=== PATIENT | female | born 1935 | race Caucasian/White ===

== ENCOUNTER 2021-11-22 09:19 | Outpatient (CLI) | payer MEDICARE ==
[2021-11-22 10:50] LABS: Hemoglobin 13.9 g/dL (12.0-15.5); Mean Corpuscular HGB CONC 32.7 g/dL (32.0-36.0); Mean Corpuscular Hemoglobin 29.8 pg (27.0-33.0); Mean Corpuscular Volume 91.2 fl (81.6-98.3); Mean Platelet Volume 10.3 fl (7.4-10.4); Platelet Count 281 10x3/uL (150-450); RBC Distribution Width 13.1 % (11.5-14.5); Red Blood Cell (RBC) Count 4.66 10x6/uL (3.90-5.03)
[2021-11-22 11:14] LABS: PTT 25.9 sec (22.0-33.0); Prothrombin Time 10.5 sec (9.5-12.1)
[2021-11-22 11:32] LABS: Anion Gap 15 mmol/L (10-20); BUN (Urea Nitrogen) 13 mg/dL (9.8-20.1); Calc. Creatinine Clearance 0 mL/min (70-130); Calcium 9.2 mg/dL (7.8-10.44); Carbon Dioxide 27 mmol/L (23-31); Chloride 101 mmol/L (98-107); Glucose 100 mg/dL (83-110); Sodium 139 mmol/L (136-145)
[2021-11-23 00:47] LABS: SARS-CoV-2 PCR by NAA Not Detected (NotDetected)
== END 2021-11-22 09:20 | disposition home or self-care (01) ==
LOC: LABBT 09:19
PROVIDERS: ATTEND Neurological Surgery
DX: Z01.818 Encounter for other preprocedural examination (principal); M43.16 Spondylolisthesis, lumbar region; M71.38 Other bursal cyst, other site; Z20.822 Contact with and (suspected) exposure to COVID-19
CPT/HCPCS: 80048; 85027; 85610; 85730; 93005; U0003; U0005; 93010

== ENCOUNTER 2021-11-25 05:20 | Inpatient (IN) | payer MEDICARE ==
[2021-11-22 13:03] VITALS: BMI 24.4
[2021-11-25] MEDS ORDERED: Bupivacaine PF 0.5% 30 ML VIAL ONE ×2 (06:09→11:36)
[2021-11-25] MEDS ORDERED: EPINEPHrine 1 MG/ML AMP ONE (06:09)
[2021-11-25] MEDS ORDERED: Thrombin 5000 UNITS/5 ML VIAL ONE (06:10)
[2021-11-25] MEDS ORDERED: Neomycin-Polymyxin 1 ML AMP ONE (06:10)
[2021-11-25] MEDS ORDERED: fentaNYL Citrate/PF 100 MCG/2 ML SYRINGE ONE (06:27)
[2021-11-25] MEDS ORDERED: Phenylephrine 10 MG/ML VIAL ONE ×2 (06:28→09:48)
[2021-11-25] MEDS ORDERED: ceFAZolin (BATCH) 2 GM/100 ML BAG ONE (06:39)
[2021-11-25] MEDS ORDERED: Promethazine HCl 25 MG/ML VIAL IM PRN ×2 (06:58→13:37)
[2021-11-25] MEDS ORDERED: HYDROmorphone 2 MG/ML VIAL SLOW IVP PRN (06:58)
[2021-11-25] MEDS ORDERED: Meperidine HCl/PF 25 MG/ML VIAL SLOW IVP PRN ×2 (06:58)
[2021-11-25] MEDS ORDERED: Ondansetron HCl/PF 4 MG/2 ML Vial IVP PRN (06:58)
[2021-11-25] MEDS ORDERED: Promethazine HCl 25 MG/ML VIAL IVPB PRN (06:58)
[2021-11-25] MEDS ORDERED: Calcium Chloride 1 GM/10 ML Abboject SYRINGE ONE (07:00)
[2021-11-25] MEDS ORDERED: Ondansetron PF 4 MG/2 ML Vial ONE (07:00)
[2021-11-25] MEDS ORDERED: Lidocaine 1% PF 5 ML VIAL ONE (07:00)
[2021-11-25] MEDS ORDERED: ePHEDrine 50 MG/ML VIAL ONE (07:00)
[2021-11-25] MEDS ORDERED: PROPOFOL 200 MG/20 ML VIAL ONE (07:00)
[2021-11-25] MEDS ORDERED: Glycopyrrolate 0.2 MG/ML 5 ML SYRINGE ONE (07:00)
[2021-11-25] MEDS ORDERED: PHENYLEPHRINE-NS 100 MCG/ML 10 ML SYRINGE ONE (07:00)
[2021-11-25] MEDS ORDERED: Rocuronium Bromide 10 MG/ML (10ML VIAL) ONE (07:00)
[2021-11-25] MEDS ORDERED: SUGAMMADEX SODIUM 200 MG/2 ML VIAL ONE (09:44)
[2021-11-25] MEDS ORDERED: HYDROmorphone 2 MG/ML VIAL ONE (09:44)
[2021-11-25] MEDS ORDERED: Bacitracin Zinc Ointment 30 gm TUBE ONE (13:26)
[2021-11-25] MEDS ORDERED: Milk Of Magnesia 30 ML UDCUP PO PRN (13:37)
[2021-11-25] MEDS ORDERED: Ondansetron PF 4 MG/2 ML Vial IVP PRN (13:37)
[2021-11-25] MEDS ORDERED: diphenhydrAMINE 50 MG/ML VIAL IVP PRN (13:37)
[2021-11-25] MEDS ORDERED: Morphine 2 MG/ML VIAL SLOW IVP PRN (13:37)
[2021-11-25] MEDS ORDERED: Prochlorperazine 10 MG/2 ML VIAL IM PRN (13:37)
[2021-11-25] MEDS ORDERED: Fentanyl 100 MCG/2 ML VIAL ONE ×2 (14:05→14:38)
[2021-11-25] MEDS ORDERED: Dextrose 50% Abboject 50 ML SYRINGE SLOW IVP PRN (15:55)
[2021-11-25] MEDS ORDERED: Dextrose 5% in Water 1,000 ML IV PRN (15:55)
[2021-11-25] MEDS ORDERED: Insulin Regular 300 UNITS/3 ML VIAL SC PRN (15:55)
[2021-11-25] MEDS: Sodium Chloride 0.9% 1,000 ML IV SCH (16:45)
[2021-11-25] MEDS: ceFAZolin (BATCH) 2 GM in Premix Bag 1 BAG IVPB SCH (16:45)
[2021-11-25] MEDS: HYDROcodone/Acetaminophen 7.5/325 mg Tablet PO PRN (16:45)
[2021-11-25] MEDS: Insulin Regular 300 UNITS/3 ML VIAL SC PRN (16:53)
[2021-11-25 17:38] LABS: #Lymphocytes 0.7 thou/uL (1.20-3.40); #Monocytes 0.9 thou/uL (0.11-0.59); #Neutrophils 14.7 thou/uL (1.40-6.50); %Eosinophils 0.2 % (0.0-10.0); %Lymphocytes 4.1 % (21.0-51.0); %Monocytes 5.3 % (0.0-10.0); %Neutrophils 90.3 % (42.0-75.0); Hemoglobin 12.8 g/dL (12.0-16.0); Mean Corpuscular HGB CONC 32.6 g/dL (32.0-36.0); Mean Platelet Volume 7.7 fL (7.4-10.4); Platelet Count 241 thou/uL (130-400); RBC Distribution Width 11.8 % (11.5-14.5); Red Blood Cell (RBC) Count 4.14 mill/uL (4.20-5.40); White Blood Cell (WBC) Count 16.3 thou/uL (4.8-10.8)
[2021-11-25 17:56] LABS: Anion Gap 13 mmol/L (10-20); BUN (Urea Nitrogen) 11 mg/dL (9.8-20.1); Calc. Creatinine Clearance 38 mL/min (70-130); Calcium 8.5 mg/dL (7.8-10.44); Carbon Dioxide 23 mmol/L (23-31); Chloride 102 mmol/L (98-107); Glucose 216 mg/dL (83-110); Potassium 4.2 mmol/L (3.5-5.1); Sodium 134 mmol/L (136-145)
[2021-11-25] MEDS: Cyclobenzaprine 10 MG TAB PO PRN ×2 (20:08→20:10)
[2021-11-25] MEDS: HYDROcodone/Acetaminophen 10/325 mg Tablet PO PRN (22:02)
[2021-11-26] MEDS ORDERED: hydrALAZINE 20 MG/ML VIAL SLOW IVP PRN (00:47)
[2021-11-26] MEDS: HYDROcodone/Acetaminophen 10/325 mg Tablet PO PRN ×4 (03:05→20:33)
[2021-11-26] MEDS: ceFAZolin (BATCH) 2 GM in Premix Bag 1 BAG IVPB SCH (03:06)
[2021-11-26 06:13] LABS: #Lymphocytes 1.5 thou/uL (1.20-3.40); #Monocytes 1.8 thou/uL (0.11-0.59); #Neutrophils 12.2 thou/uL (1.40-6.50); %Basophils 0.1 % (0.0-1.0); %Eosinophils 0.1 % (0.0-10.0); %Lymphocytes 9.5 % (21.0-51.0); %Monocytes 11.5 % (0.0-10.0); %Neutrophils 78.8 % (42.0-75.0); Hemoglobin 10.2 g/dL (12.0-16.0); Mean Corpuscular HGB CONC 33.6 g/dL (32.0-36.0); Mean Corpuscular Hemoglobin 31.8 pg (27.0-31.0); Mean Corpuscular Volume 94.5 fL (78.0-98.0); Mean Platelet Volume 8.3 fL (7.4-10.4); Platelet Count 215 thou/uL (130-400); RBC Distribution Width 11.6 % (11.5-14.5); Red Blood Cell (RBC) Count 3.22 mill/uL (4.20-5.40); White Blood Cell (WBC) Count 15.5 thou/uL (4.8-10.8)
[2021-11-26 06:54] LABS: Anion Gap 11 mmol/L (10-20); BUN (Urea Nitrogen) 11 mg/dL (9.8-20.1); Calc. Creatinine Clearance 52 mL/min (70-130); Calcium 8.4 mg/dL (7.8-10.44); Carbon Dioxide 25 mmol/L (23-31); Chloride 103 mmol/L (98-107); Glucose 132 mg/dL (83-110); Potassium 4.1 mmol/L (3.5-5.1); Sodium 135 mmol/L (136-145)
[2021-11-26] MEDS: Sodium Chloride 0.9% 1,000 ML IV SCH ×2 (07:09→15:38)
[2021-11-26] MEDS: traMADol HCl 50 MG TAB PO PRN (15:55)
[2021-11-26] MEDS ORDERED: Lisinopril/Hydrochlorothiazide 10 mg/12.5 mg Tablet PO SCH (16:15)
[2021-11-26] MEDS: Insulin Regular 300 UNITS/3 ML VIAL SC PRN (16:21)
[2021-11-26] MEDS ORDERED: metFORMIN 500 MG TAB PO SCH (16:30)
[2021-11-27] MEDS: HYDROcodone/Acetaminophen 10/325 mg Tablet PO PRN ×4 (02:14→22:59)
[2021-11-27] MEDS: Sodium Chloride 0.9% 1,000 ML IV SCH ×2 (05:45→18:05)
[2021-11-27 06:09] LABS: #Lymphocytes 2.2 thou/uL (1.20-3.40); #Monocytes 1.6 thou/uL (0.11-0.59); #Neutrophils 10.5 thou/uL (1.40-6.50); %Basophils 0.1 % (0.0-1.0); %Eosinophils 0.1 % (0.0-10.0); %Lymphocytes 15.6 % (21.0-51.0); %Monocytes 10.9 % (0.0-10.0); %Neutrophils 73.3 % (42.0-75.0); Hemoglobin 9.3 g/dL (12.0-16.0); Mean Corpuscular HGB CONC 34.5 g/dL (32.0-36.0); Mean Corpuscular Hemoglobin 32.9 pg (27.0-31.0); Mean Corpuscular Volume 95.4 fL (78.0-98.0); Mean Platelet Volume 8.1 fL (7.4-10.4); Platelet Count 202 thou/uL (130-400); RBC Distribution Width 12.5 % (11.5-14.5); Red Blood Cell (RBC) Count 2.82 mill/uL (4.20-5.40); White Blood Cell (WBC) Count 14.3 thou/uL (4.8-10.8)
[2021-11-27 06:35] LABS: Anion Gap 10 mmol/L (10-20); BUN (Urea Nitrogen) 10 mg/dL (9.8-20.1); Calc. Creatinine Clearance 57 mL/min (70-130); Calcium 8.1 mg/dL (7.8-10.44); Carbon Dioxide 27 mmol/L (23-31); Chloride 101 mmol/L (98-107); Glucose 118 mg/dL (83-110); Potassium 3.6 mmol/L (3.5-5.1); Sodium 134 mmol/L (136-145)
[2021-11-27] MEDS ORDERED: metFORMIN 500 MG TAB PO SCH (08:00)
[2021-11-27] MEDS: Lisinopril/Hydrochlorothiazide 10 mg/12.5 mg Tablet PO SCH (08:32)
[2021-11-27] MEDS: Cholecalciferol 1,000 UNITS (25 MCG) TAB PO SCH (08:32)
[2021-11-27] MEDS: Vit A,C & E/Lutein/Minerals Tablet PO SCH (08:32)
[2021-11-27] MEDS: metFORMIN 500 MG TAB PO SCH (08:33)
[2021-11-27] MEDS ORDERED: Aspirin 81 mg Enteric Coated Tablet PO SCH (09:00)
[2021-11-27] MEDS ORDERED: Lisinopril/Hydrochlorothiazide 10 mg/12.5 mg Tablet PO SCH (09:00)
[2021-11-27] MEDS ORDERED: TETRAHYDROZOLINE HCL EA EYE SCH (09:00)
[2021-11-27] MEDS ORDERED: ZINC SULF EA EYE SCH (09:00)
[2021-11-27] MEDS: Acetaminophen/Codeine 30-300mg Tablet PO PRN (11:37)
[2021-11-27] MEDS: Cyclobenzaprine 10 MG TAB PO PRN (20:13)
[2021-11-27] MEDS ORDERED: Heparin 5,000 UNITS/ML VIAL SC SCH (21:00)
[2021-11-28] MEDS: HYDROcodone/Acetaminophen 10/325 mg Tablet PO PRN ×2 (05:35→20:11)
[2021-11-28] MEDS: Cholecalciferol 1,000 UNITS (25 MCG) TAB PO SCH (09:01)
[2021-11-28] MEDS: Lisinopril/Hydrochlorothiazide 10 mg/12.5 mg Tablet PO SCH (09:01)
[2021-11-28] MEDS: metFORMIN 500 MG TAB PO SCH (09:01)
[2021-11-28] MEDS: Vit A,C & E/Lutein/Minerals Tablet PO SCH (09:01)
[2021-11-28] MEDS: HYDROcodone/Acetaminophen 7.5/325 mg Tablet PO PRN ×2 (10:02→16:04)
[2021-11-28] MEDS: Sodium Chloride 0.9% 1,000 ML IV SCH ×2 (13:29→21:45)
[2021-11-28] MEDS: Heparin 5,000 UNITS/ML VIAL SC SCH (20:12)
[2021-11-29] MEDS: HYDROcodone/Acetaminophen 10/325 mg Tablet PO PRN ×2 (02:37→23:40)
[2021-11-29] MEDS: Cyclobenzaprine 10 MG TAB PO PRN ×2 (05:45→20:30)
[2021-11-29] MEDS: Heparin 5,000 UNITS/ML VIAL SC SCH ×2 (09:28→20:30)
[2021-11-29] MEDS: metFORMIN 500 MG TAB PO SCH (09:29)
[2021-11-29] MEDS: Vit A,C & E/Lutein/Minerals Tablet PO SCH (09:29)
[2021-11-29] MEDS: Cholecalciferol 1,000 UNITS (25 MCG) TAB PO SCH (09:29)
[2021-11-29] MEDS: Lisinopril/Hydrochlorothiazide 10 mg/12.5 mg Tablet PO SCH (09:29)
[2021-11-29] MEDS: Insulin Regular 300 UNITS/3 ML VIAL SC PRN (12:15)
[2021-11-29] MEDS: Sodium Chloride 0.9% 1,000 ML IV SCH (12:17)
[2021-11-29 16:52] LABS: Bacteria/HPF None Seen HPF (None Seen); Bilirubin Negative (Negative); Blood, Urine Negative (Negative); Clarity Clear (Clear); Glucose, Urine (Dipstick) Normal (Negative); Ketone, Urine Negative (Negative); Leukocyte Negative Leu/uL (Negative); Nitrite Negative (Negative); Protein, Urine (Dipstick) Negative (Neg-Trace); RBC/HPF 0-3 HPF (0-3); Specific Gravity, Urine 1.006 (1.002-1.036); Squamous Epithelial None Seen HPF (0-3); Urobilinogen Normal mg/dL (Less than 2); WBC/HPF 0-3 HPF (0-3); pH, Urine 7.5 (5.0-9.0)
[2021-11-29 17:28] LABS: Creatinine, Urine 20.76 mg/dL (47-110)
[2021-11-29] MEDS: Acetaminophen/Codeine 30-300mg Tablet PO PRN (18:24)
[2021-11-30] MEDS: HYDROcodone/Acetaminophen 10/325 mg Tablet PO PRN (05:07)
[2021-11-30 07:02] LABS: Hemoglobin A1c 5.8 % (4.0-6.0)
[2021-11-30 07:21] LABS: Anion Gap 11 mmol/L (10-20); BUN (Urea Nitrogen) 9 mg/dL (9.8-20.1); Calc. Creatinine Clearance 57 mL/min (70-130); Calcium 8.4 mg/dL (7.8-10.44); Carbon Dioxide 27 mmol/L (23-31); Chloride 96 mmol/L (98-107); Glucose 121 mg/dL (83-110); Magnesium 2.1 mg/dL (1.6-2.6); Potassium 3.4 mmol/L (3.5-5.1); Sodium 131 mmol/L (136-145)
[2021-11-30] MEDS: Lisinopril 20 MG TAB PO SCH (09:00)
[2021-11-30] MEDS: Cholecalciferol 1,000 UNITS (25 MCG) TAB PO SCH (09:00)
[2021-11-30] MEDS: Vit A,C & E/Lutein/Minerals Tablet PO SCH (09:00)
[2021-11-30] MEDS: metFORMIN 500 MG TAB PO SCH (09:00)
[2021-11-30] MEDS ORDERED: Iopamidol 370 76% 50 ML VIAL FS ONE (09:37)
[2021-11-30] MEDS: Acetaminophen/Codeine 30-300mg Tablet PO PRN ×2 (13:00→17:36)
[2021-11-30] MEDS ORDERED: Magnesium Citrate 300 ML BOT PO SCH (13:30)
[2021-11-30] MEDS ORDERED: Sodium Chloride 0.9% 1,000 ML IV SCH (14:15)
[2021-11-30] MEDS ORDERED: Lidocaine 1% (PF) 30 ML VIAL ONE (14:23)
[2021-11-30] MEDS: Cyclobenzaprine 10 MG TAB PO PRN (17:55)
[2021-11-30] MEDS: HYDROcodone/Acetaminophen 7.5/325 mg Tablet PO PRN (20:38)
[2021-11-30] MEDS: Senokot S 8.6-50 MG TAB PO SCH (20:38)
[2021-11-30] MEDS: traMADol HCl 50 MG TAB PO PRN (21:49)
[2021-12-01] MEDS: Acetaminophen/Codeine 30-300mg Tablet PO PRN (00:11)
[2021-12-01] MEDS: Cyclobenzaprine 10 MG TAB PO PRN ×2 (00:11→20:38)
[2021-12-01] MEDS: HYDROcodone/Acetaminophen 7.5/325 mg Tablet PO PRN ×2 (04:58→20:37)
[2021-12-01 05:32] LABS: Hemoglobin 9.2 g/dL (12.0-16.0); Mean Corpuscular HGB CONC 32.8 g/dL (32.0-36.0); Mean Corpuscular Hemoglobin 30.9 pg (27.0-31.0); Mean Corpuscular Volume 94.2 fL (78.0-98.0); Mean Platelet Volume 6.9 fL (7.4-10.4); Platelet Count 339 thou/uL (130-400); RBC Distribution Width 11.7 % (11.5-14.5); Red Blood Cell (RBC) Count 2.96 mill/uL (4.20-5.40); White Blood Cell (WBC) Count 6.8 thou/uL (4.8-10.8)
[2021-12-01 05:54] LABS: Anion Gap 13 mmol/L (10-20); BUN (Urea Nitrogen) 8 mg/dL (9.8-20.1); Calc. Creatinine Clearance 58 mL/min (70-130); Calcium 8.5 mg/dL (7.8-10.44); Carbon Dioxide 25 mmol/L (23-31); Chloride 99 mmol/L (98-107); Glucose 119 mg/dL (83-110); Magnesium 1.9 mg/dL (1.6-2.6); Potassium 3.9 mmol/L (3.5-5.1); Sodium 133 mmol/L (136-145)
[2021-12-01] MEDS ORDERED: Magnesium 2 GM/50 ML(in water) 2 GM in Premix Bag 1 BAG IVPB SCH (07:30)
[2021-12-01] MEDS: Cholecalciferol 1,000 UNITS (25 MCG) TAB PO SCH (08:49)
[2021-12-01] MEDS: Polyethylene Glycol 3350 17 GM Packet PO SCH (08:49)
[2021-12-01] MEDS: Lisinopril 20 MG TAB PO SCH (08:49)
[2021-12-01] MEDS: Senokot S 8.6-50 MG TAB PO SCH ×2 (08:49→20:38)
[2021-12-01] MEDS: Vit A,C & E/Lutein/Minerals Tablet PO SCH (08:49)
[2021-12-01] MEDS: metFORMIN 500 MG TAB PO SCH (08:49)
[2021-12-01] MEDS ORDERED: Milk Of Magnesia 30 ML UDCUP PO SCH (13:30)
[2021-12-02] MEDS: Acetaminophen/Codeine 30-300mg Tablet PO PRN (03:16)
[2021-12-02 06:02] LABS: Iron Binding Capacity, Total 213 mcg/dL (265-497)
[2021-12-02 06:03] LABS: Iron 25 ug/dL (50-170)
[2021-12-02 06:05] LABS: Anion Gap 12 mmol/L (10-20); BUN (Urea Nitrogen) 9 mg/dL (9.8-20.1); Calc. Creatinine Clearance 57 mL/min (70-130); Calcium 8.5 mg/dL (7.8-10.44); Carbon Dioxide 25 mmol/L (23-31); Chloride 99 mmol/L (98-107); Glucose 120 mg/dL (83-110); Iron 24 ug/dL (50-170); Iron Binding Capacity, Total 213 mcg/dL (265-497); Magnesium 2.4 mg/dL (1.6-2.6); Sodium 132 mmol/L (136-145)
[2021-12-02] MEDS: Polyethylene Glycol 3350 17 GM Packet PO SCH ×2 (08:44→20:36)
[2021-12-02] MEDS: Vit A,C & E/Lutein/Minerals Tablet PO SCH (08:45)
[2021-12-02] MEDS: Lisinopril 20 MG TAB PO SCH (08:45)
[2021-12-02] MEDS: metFORMIN 500 MG TAB PO SCH (08:45)
[2021-12-02] MEDS: Senokot S 8.6-50 MG TAB PO SCH ×2 (08:45→20:36)
[2021-12-02] MEDS: HYDROcodone/Acetaminophen 10/325 mg Tablet PO PRN ×2 (09:00→15:20)
[2021-12-02] MEDS: Cholecalciferol 1,000 UNITS (25 MCG) TAB PO SCH (09:01)
[2021-12-02 10:26] LABS: Bacteria/HPF 2+ HPF (None Seen); RBC/HPF 0-3 HPF (0-3); Squamous Epithelial 0-3 HPF (0-3); WBC/HPF 21-50 HPF (0-3)
[2021-12-02] MEDS: Iron, Sodium Ferric Gluconate 250 MG in Sodium Chloride 0.9% 250 ML 250 ML IVPB SCH (10:36)
[2021-12-02 10:54] LABS: Creatinine, Urine Less than 20.00 mg/dL (47-110); Urea Nitrogen, Random Urine 115 mg/dl
[2021-12-02] MEDS ORDERED: Bisacodyl 10 MG SUPP PR SCH (18:45)
[2021-12-02 19:39] LABS: Troponin I Less than 0.010 ng/mL (< 0.028)
[2021-12-02] MEDS: Ciprofloxacin 500 MG TAB PO SCH (20:36)
[2021-12-02] MEDS: HYDROcodone/Acetaminophen 7.5/325 mg Tablet PO PRN (22:32)
[2021-12-03] MEDS: Ciprofloxacin 500 MG TAB PO SCH ×2 (05:54→22:01)
[2021-12-03] MEDS: HYDROcodone/Acetaminophen 10/325 mg Tablet PO PRN (05:55)
[2021-12-03 06:21] LABS: Anion Gap 16 mmol/L (10-20); BUN (Urea Nitrogen) 7 mg/dL (9.8-20.1); Calc. Creatinine Clearance 60 mL/min (70-130); Calcium 8.3 mg/dL (7.8-10.44); Carbon Dioxide 23 mmol/L (23-31); Chloride 100 mmol/L (98-107); Glucose 101 mg/dL (83-110); Potassium 4.5 mmol/L (3.5-5.1); Sodium 134 mmol/L (136-145)
[2021-12-03 06:26] LABS: Troponin I Less than 0.010 ng/mL (< 0.028)
[2021-12-03] MEDS: Vit A,C & E/Lutein/Minerals Tablet PO SCH (09:47)
[2021-12-03] MEDS: Senokot S 8.6-50 MG TAB PO SCH ×2 (09:47→20:41)
[2021-12-03] MEDS: Lisinopril 20 MG TAB PO SCH (09:48)
[2021-12-03] MEDS: Polyethylene Glycol 3350 17 GM Packet PO SCH ×2 (09:48→20:41)
[2021-12-03] MEDS: Cholecalciferol 1,000 UNITS (25 MCG) TAB PO SCH (09:48)
[2021-12-03] MEDS: metFORMIN 500 MG TAB PO SCH (09:48)
[2021-12-03] MEDS: HYDROcodone/Acetaminophen 7.5/325 mg Tablet PO PRN ×2 (09:54→15:56)
[2021-12-03] MEDS: Iron, Sodium Ferric Gluconate 250 MG in Sodium Chloride 0.9% 250 ML 250 ML IVPB SCH (12:56)
[2021-12-03] MEDS ORDERED: Phenazopyridine HCl 100 MG TAB PO SCH (13:00)
[2021-12-03] MEDS: Cyclobenzaprine 10 MG TAB PO PRN (15:22)
[2021-12-04] MEDS: HYDROcodone/Acetaminophen 7.5/325 mg Tablet PO PRN ×3 (02:38→15:46)
[2021-12-04] MEDS: Cyclobenzaprine 10 MG TAB PO PRN (03:32)
[2021-12-04] MEDS: traMADol HCl 50 MG TAB PO PRN (05:26)
[2021-12-04] MEDS: Ciprofloxacin 500 MG TAB PO SCH ×2 (05:27→21:09)
[2021-12-04] MEDS: Insulin Regular 300 UNITS/3 ML VIAL SC PRN ×2 (05:32→13:23)
[2021-12-04 07:16] LABS: Anion Gap 15 mmol/L (10-20); BUN (Urea Nitrogen) 15 mg/dL (9.8-20.1); Calc. Creatinine Clearance 39 mL/min (70-130); Calcium 8.4 mg/dL (7.8-10.44); Carbon Dioxide 22 mmol/L (23-31); Chloride 96 mmol/L (98-107); Glucose 173 mg/dL (83-110); Magnesium 2.2 mg/dL (1.6-2.6); Potassium 4.5 mmol/L (3.5-5.1); Sodium 128 mmol/L (136-145)
[2021-12-04] MEDS ORDERED: Lisinopril 5 MG TAB PO SCH (09:00)
[2021-12-04] MEDS: Senokot S 8.6-50 MG TAB PO SCH ×2 (09:56→21:09)
[2021-12-04] MEDS: Polyethylene Glycol 3350 17 GM Packet PO SCH ×2 (09:56→21:09)
[2021-12-04] MEDS: Vit A,C & E/Lutein/Minerals Tablet PO SCH (09:58)
[2021-12-04] MEDS: Cholecalciferol 1,000 UNITS (25 MCG) TAB PO SCH (09:58)
[2021-12-04] MEDS: metFORMIN 500 MG TAB PO SCH (09:59)
[2021-12-04] MEDS: Iron, Sodium Ferric Gluconate 250 MG in Sodium Chloride 0.9% 250 ML 250 ML IVPB SCH (10:00)
[2021-12-05] MEDS: HYDROcodone/Acetaminophen 10/325 mg Tablet PO PRN ×4 (00:41→20:50)
[2021-12-05] MEDS: Ciprofloxacin 500 MG TAB PO SCH ×2 (06:08→20:50)
[2021-12-05 06:21] LABS: Anion Gap 11 mmol/L (10-20); BUN (Urea Nitrogen) 10 mg/dL (9.8-20.1); Calc. Creatinine Clearance 55 mL/min (70-130); Calcium 8.6 mg/dL (7.8-10.44); Carbon Dioxide 26 mmol/L (23-31); Chloride 99 mmol/L (98-107); Glucose 100 mg/dL (83-110); Potassium 4.2 mmol/L (3.5-5.1); Sodium 132 mmol/L (136-145)
[2021-12-05] MEDS: Vit A,C & E/Lutein/Minerals Tablet PO SCH (09:47)
[2021-12-05] MEDS: Polyethylene Glycol 3350 17 GM Packet PO SCH ×2 (09:48→20:50)
[2021-12-05] MEDS: Senokot S 8.6-50 MG TAB PO SCH ×2 (09:48→20:50)
[2021-12-05] MEDS: Cholecalciferol 1,000 UNITS (25 MCG) TAB PO SCH (09:48)
[2021-12-05] MEDS: metFORMIN 500 MG TAB PO SCH (09:48)
[2021-12-05] MEDS: Iron, Sodium Ferric Gluconate 250 MG in Sodium Chloride 0.9% 250 ML 250 ML IVPB SCH (13:59)
[2021-12-05] MEDS: traMADol HCl 50 MG TAB PO PRN (14:03)
[2021-12-05] MEDS: Cyclobenzaprine 10 MG TAB PO PRN (20:50)
[2021-12-06] MEDS: HYDROcodone/Acetaminophen 10/325 mg Tablet PO PRN ×2 (06:10→21:46)
[2021-12-06] MEDS: Ciprofloxacin 500 MG TAB PO SCH ×2 (06:10→21:47)
[2021-12-06] MEDS: Polyethylene Glycol 3350 17 GM Packet PO SCH ×2 (08:34→21:47)
[2021-12-06] MEDS: metFORMIN 500 MG TAB PO SCH (08:34)
[2021-12-06] MEDS: Cholecalciferol 1,000 UNITS (25 MCG) TAB PO SCH (08:34)
[2021-12-06] MEDS: Vit A,C & E/Lutein/Minerals Tablet PO SCH (08:34)
[2021-12-06] MEDS: Senokot S 8.6-50 MG TAB PO SCH ×2 (08:34→21:46)
[2021-12-06] MEDS ORDERED: Saccharomyces boulardii 250 MG CAP PO SCH (21:00)
[2021-12-06] MEDS: Cyclobenzaprine 10 MG TAB PO PRN (21:46)
[2021-12-07] MEDS: HYDROcodone/Acetaminophen 10/325 mg Tablet PO PRN ×2 (03:07→07:10)
[2021-12-07] MEDS: Ciprofloxacin 500 MG TAB PO SCH (06:15)
[2021-12-07] MEDS ORDERED: Bisacodyl 10 MG SUPP PR PRN (06:39)
[2021-12-07] MEDS: traMADol HCl 50 MG TAB PO PRN (09:03)
[2021-12-07] MEDS: Vit A,C & E/Lutein/Minerals Tablet PO SCH (09:04)
[2021-12-07] MEDS: Polyethylene Glycol 3350 17 GM Packet PO SCH (09:04)
[2021-12-07] MEDS: metFORMIN 500 MG TAB PO SCH (09:05)
[2021-12-07] MEDS: Cholecalciferol 1,000 UNITS (25 MCG) TAB PO SCH (09:05)
[2021-12-07] MEDS: Senokot S 8.6-50 MG TAB PO SCH (09:05)
[2021-12-07 12:28] VITALS: BP 148/68; TEMP 97.3
[2021-12-07] MEDS ORDERED: Fleet Enema 133 ML BOT FS PRN (12:58)
== END 2021-12-07 16:11 | disposition home health service (06) | DRG 454 ==
LOC: SDC 05:20 → SURG A 13:37 → OBSVTOIN 11-28 06:11
PROVIDERS: ADMIT Neurological Surgery; ATTEND Neurological Surgery
PROC: 0SG10AJ Fusion of 2 or more Lumbar Vertebral Joints with Interbody Fusion Device, Posterior Approach, Anterior Column, Open Approach (ICD-10-PCS; 2021-11-25)
PROC: 0SG1071 Fusion of 2 or more Lumbar Vertebral Joints with Autologous Tissue Substitute, Posterior Approach, Posterior Column, Open Approach (ICD-10-PCS; 2021-11-25)
PROC: 0SB20ZZ Excision of Lumbar Vertebral Disc, Open Approach (ICD-10-PCS; 2021-11-25)
PROC: 01NB0ZZ Release Lumbar Nerve, Open Approach (ICD-10-PCS; 2021-11-25)
PROC: 06H03DZ Insertion of Intraluminal Device into Inferior Vena Cava, Percutaneous Approach (ICD-10-PCS; principal; 2021-11-30)
DX: M43.16 Spondylolisthesis, lumbar region (principal); E87.1 Hypo-osmolality and hyponatremia; N39.0 Urinary tract infection, site not specified; I82.413 Acute embolism and thrombosis of femoral vein, bilateral; M48.062 Spinal stenosis, lumbar region with neurogenic claudication; M50.122 Cervical disc disorder at C5-C6 level with radiculopathy; M71.38 Other bursal cyst, other site; G89.29 Other chronic pain; I10 Essential (primary) hypertension; M71.30 Other bursal cyst, unspecified site; E11.42 Type 2 diabetes mellitus with diabetic polyneuropathy; R25.1 Tremor, unspecified; E78.5 Hyperlipidemia, unspecified; R53.81 Other malaise; R05.9 Cough, unspecified; R11.0 Nausea; K59.00 Constipation, unspecified; D64.9 Anemia, unspecified; J84.10 Pulmonary fibrosis, unspecified; M51.16 Intervertebral disc disorders with radiculopathy, lumbar region; R94.31 Abnormal electrocardiogram [ECG] [EKG]; H40.9 Unspecified glaucoma; T50.2X5A Adverse effect of carbonic-anhydrase inhibitors, benzothiadiazides and other diuretics, initial encounter; B96.20 Unspecified Escherichia coli [E. coli] as the cause of diseases classified elsewhere; B96.5 Pseudomonas (aeruginosa) (mallei) (pseudomallei) as the cause of diseases classified elsewhere; R33.9 Retention of urine, unspecified; Z98.42 Cataract extraction status, left eye; Z98.41 Cataract extraction status, right eye; Z86.73 Personal history of transient ischemic attack (TIA), and cerebral infarction without residual deficits; Z98.890 Other specified postprocedural states; Z87.891 Personal history of nicotine dependence; Z79.82 Long term (current) use of aspirin; Z79.899 Other long term (current) drug therapy; Z79.84 Long term (current) use of oral hypoglycemic drugs; Z91.81 History of falling
CPT/HCPCS: 36415; 36416; 37191; 51702; 71045; 74018; 76000; 80048; 81001; 81015; 82570; 82728; 83036; 83540; 83550; 83735; 83880; 83930; 83935; 84300; 84443; 84484; 84540; 85025; 85027; 87077; 87086; 87186; 93005; 93010; 93306; 93970; 96365; 96376; C1713; C1768; C1776; C1880; G0378; J0171; J0690; J1170; J1644; J1815; J2001; J2370; J2405; J2704; J2916; J3010; J3370; J3475; J3490; J7050; Q9967; S0020

== ENCOUNTER 2022-02-02 12:24 | Outpatient (CLI) | payer MEDICARE | END 2022-02-02 12:25 | disposition home or self-care (01) | LOC: TBSIIMAG 12:24 | PROVIDERS: ATTEND Neurological Surgery | DX: M48.062 Spinal stenosis, lumbar region with neurogenic claudication (principal); Z98.1 Arthrodesis status | CPT/HCPCS: 72100 ==

== ENCOUNTER 2022-02-03 05:26 | Day surgery (SDC) | payer MEDICARE ==
[2022-02-01 10:40] VITALS: BMI 21.6
[2022-02-03] MEDS ORDERED: Lidocaine 1% (PF) 30 ML VIAL ONE (06:28)
[2022-02-03] MEDS ORDERED: Iopamidol 370 76% 50 ML VIAL FS ONE (10:34)
== END 2022-02-03 08:15 | disposition home or self-care (01) ==
LOC: SDC 05:26
PROVIDERS: ATTEND Thoracic Surgery (Cardiothoracic Vascular Surgery)
PROC: 06PY3DZ Removal of Intraluminal Device from Lower Vein, Percutaneous Approach (ICD-10-PCS; principal; 2022-02-03)
DX: Z45.89 Encounter for adjustment and management of other implanted devices (principal); I10 Essential (primary) hypertension; E11.9 Type 2 diabetes mellitus without complications; E78.5 Hyperlipidemia, unspecified; Z86.718 Personal history of other venous thrombosis and embolism; Z79.82 Long term (current) use of aspirin; Z79.84 Long term (current) use of oral hypoglycemic drugs; Z79.899 Other long term (current) drug therapy; Z98.890 Other specified postprocedural states
CPT/HCPCS: 75825; C1769; C1773; C1894; J2001; Q9967